=== PATIENT | female | born 1970 | race Caucasian/White ===

== ENCOUNTER → 2016-10-27 | Outpatient (CLI) | payer OTHER | LOC: FIMAGING 07:32 | PROVIDERS: ATTEND Physician Assistant Medical | DX: Z12.31 Encounter for screening mammogram for malignant neoplasm of breast (principal); Z85.3 Personal history of malignant neoplasm of breast | CPT/HCPCS: G0202-52 ==

== ENCOUNTER 2018-06-21 09:28 | Emergency (ER) | payer OTHER ==
--- NOTE | 2018-06-21 09:48 | EDPHY ---
General - History Smoking Status: Never smoked Time Seen by Provider: 06/21/18 09:47 Narrative: CLINICAL IMPRESSION: Lumbar back pain without radiculopathy ASSESSMENT/PLAN: Patient is a 47-year-old female with no significant medical history presents to the emergency department with right-sided lumbar back pain after bending over just prior to arrival. Patient is afebrile, not toxic appearing and in no acute distress. She has tenderness on her right lumbar region and right SI joint. HSNE intact with no significant red flags. Lumbar x-ray with no acute findings. UA with no evidence of infection, do not suspect UTI or pyelo. I suspect her pain is secondary to myofascial strain, she was given ibuprofen, Flexeril and a lidocaine patch was placed with improvement of her discomfort. She does not have a primary care provider, I discussed the importance of establishing care as she may benefit from PT and may ultimately need further imaging to include MRI. There were no findings today to suggest other etiologies to include epidural compression/hematoma, epidural abscess, fracture , subluxation, cauda equina or herpes zoster. Patient will call today to schedule follow-up and establish care, conservative return precautions discussed. DIFFERENTIAL DX: Back pain including but not limited to muscular pain, herniated disc, spine fracture, intra-abdominal causes and urinary tract infection. CHIEF COMPLAINT: Right Sided Back Pain HPI: Patient is a 47-year-old female with no significant medical history who presents to the emergency department with right-sided lumbar back pain. Patient reports last April she experienced a similar episode after she bent over, experiencing pain on and off however improved with increased exercise and core strengthening. Yesterday morning she bent over again and had a sudden onset in the same location of her lower right lumbar spine, the pain increased and around 630 she felt like she could not stand or sit secondary to the pain. At baseline the pain is very achy and dull, with movement it is very sharp. She denies any radiation of the pain down her leg. She denies any trauma or injury. She has had no fever, chest pain, shortness of breath or abdominal pain. She denies any urinary symptoms to include dysuria, hematuria or frequency. Bowel movements have been regular and normal. She took a narcotic that she had left over from an ankle surgery last evening and this morning around 1:00 a.m. With mild relief of her symptoms. She has never been evaluated for this, no imaging has been performed. Patient denies saddle paresthesias, lower extremity numbness, tingling, major motor weakness, urinary retention or bowel/bladder incontinence. PMH: Denies Family History: Not contributory Social History: Denies REVIEW OF SYSTEMS: All other systems negative Constitutional: No fever. Eyes: No discharge, vision change ENT: No sore throat, congestion, ear pain. Cardiovascular: No chest pain, no palpitations. Respiratory: No cough, no shortness of breath. Gastrointestinal: No abdominal pain, no vomiting, diarrhea. Genitourinary: No hematuria, dysuria, flank pain, pelvic pain. Musculoskeletal: Lumbar back pain. No myalgias. Skin: No rashes, color change. Neurological: No headache, dizziness, weakness. PHYSICAL EXAM: General Appearance: Alert, uncomfortable appearing however not toxic-appearing. HENT: Normocephalic, atraumatic. Bilateral external ears are normal. Bilateral tympanic membranes are normal with pearly skinner reflex. Nares are clear, mucosa is pink. Oropharynx is clear, uvula is midline. There is no tonsillar enlargement or exudate. Eyes: PERRLA, EOMI. Conjunctiva pink, no pallor or injection. Neck: Supple, nontender, no lymphadenopathy, no midline pain, FROM, no meningismus. Back: No step-off, palpable bony abnormality, edema, erythema or ecchymosis of the cervical, thoracic or lumbar spines. Mild tenderness to palpation midline lumbar spine and right SI joint. Limited range of motion of the lumbar spine secondary to pain. 5/5 and equal strength of the UEs and LEs bilaterally including shoulder shrug. Pulses: 2+ and equal radial, DP and PT pulses bilaterally. Sensation intact and symmetric to light touch from face, UEs and LEs bilaterally. Straight leg raise negative bilaterally. Low/medium concern for Acute Spinal Emergency (ASE) High Sensitivity Neuro Exam (HSNE) Lumbar pain L1: inner thigh sensation- no deficit L2: ADduct thigh (cross legs)- no deficit L3: Extend knee- no deficit L4: Ankle dorsiflexion- no deficit L5: Great toe extension- no deficit S1: Flex knee- no deficit S3-4: bladder/bowel function - no dysfunction HSNE no deficit --> check red flags Red flags: MINOR (1 pt each) Alcohol abuse: No DM : No Renal failure : No Night pain: No 3rd visit in <= 20 days: No MAJOR (3 pts each) IVDA : No Fever without focus: No Recent/current systemic infection: No Immunosuppression (physician discretion): No Recent spinal fracture/spinal procedure (ESR is not a good screen for spinal epidural hematoma): no New bladder/bowel incontinence or retention: Not Total Red Flag score 0 Total Red Flag score <= 3 AND neuro exam is at baseline ---> no MRI is recommended Respiratory: There are no retractions, lungs are clear to auscultation. Cardiac: Regular rate and rhythm, no murmurs or gallops. Gastrointestinal: Abdomen is soft, nontender, bowel sounds normal, no masses/ hernia, no rigidity, guarding or focal peritoneal findings. Neurological: Alert and oriented x 3, CN 2-12 grossly intact, normal gait no ataxia, DTR's intact, normal sensation and strength Skin: Warm, dry, no rashes. Musculoskeletal: Extremities are symmetrical, full range of motion, no tenderness, deformity, swelling, or erythema. Psychiatric: Patient is oriented X 3, there is no agitation. MEDICAL DECISION MAKING: Patient was seen independently. Secondary supervising physician at time of evaluation was Dr. Reynolds, he did not evaluate this patient.. Diagnosis: Lumbar back pain. New, requires workup Summary: Patient is a 47-year-old female with no significant medical history who presents with a complaint of low back pain after bending over yesterday. HSNE intact with no significant red flags. Lumbar spine xray today with no significant findings. Physical examination today is consistent with lumbar myofascial strain. She had no saddle paresthesias, lower extremity numbness, tingling, major motor weakness, urinary retention or bowel/bladder incontinence. No indication for emergent MRI. There were no clinical findings to suggest vertebral osteomyelitis, acute fracture, cauda equina syndrome, epidural abscess/hematoma, epidural compression syndrome, renal colic, AAA, dissection, pyelonephritis, meningitis, malignancy, transverse myelitis, herpes zoster, or additional emergent intraabdominal infectious/obstructive process. Patient was given single dose of ibuprofen, flexeril and a lidoderm patch was placed while in the ED with improvement of her pain. She does not have a primary care provider, I have given her a referral and discussed the importance of follow-up. On repeat examination and prior to discharge the patient was able to ambulate without difficulty, her neurological exam was grossly normal with no focal deficit. Clinical lab tests: Not applicable. Independent visualization of images, tracing, or specimens: Yes. Decision to obtain medical records or history from someone other than the patient: Yes Review / Summarize previous medical records: Yes Discussed patient with another provider: Yes, discussed with Dr. Reynolds Patient Progress: Stable, discharge. (Krista Crow) Medical Decision Making: I did not see this patient while she was in the emergency department. However her care was discussed with the PA while the patient was in the department. I agree with treatment plan and management (Richie Reynolds) - Diagnostics Imaging Results: Imaging Impressions Lumbar Spine X-Ray 06/21/18 10:11 Impression: 1. No compression fracture or pars defect. 2. No significant degenerative disk disease. - Objective Vital Signs: Initial Vital Signs Temperature (C) 37 C 06/21/18 09:31 Heart Rate 80 06/21/18 09:31 Respiratory Rate 18 06/21/18 09:31 Blood Pressure 106/83 H 06/21/18 09:31 O2 Sat (%) 97 06/21/18 09:31 O2 Delivery Mode Room Air Allergies/Adverse Reactions: No Allergies [NKA] Allergy (Verified 06/21/18 09:31) Home Medications: Medication Instructions Recorded Cyclobenzaprine [Cyclobenzaprine 5 mg PO Q8 PRN #10 tab 06/21/18 HCl] Laboratory Results: 06/21/18 10:36 Urine Color YELLOW Urine Appearance HAZY Urine pH 5.0 (5.0-7.5) Ur Specific Peterson 1.029 (1.002-1.030) Urine Protein NEGATIVE (NEGATIVE) Urine Ketones NEGATIVE (NEGATIVE) Urine Blood NEGATIVE (NEGATIVE) Urine Nitrate NEGATIVE (NEGATIVE) Urine Bilirubin NEGATIVE (NEGATIVE) Urine Urobilinogen 2.0 EU H EU (0.2-1.0) Ur Leukocyte Esterase NEGATIVE (NEGATIVE) Urine Glucose NEGATIVE (NEGATIVE) Medications Given: Discontinued Medications Cyclobenzaprine HCl (Flexeril) 10 mg PO EDNOW ONE Stop: 06/21/18 10:13 Last Admin: 06/21/18 10:29 Dose: 10 mg Ibuprofen (Motrin) 600 mg PO EDNOW ONE Stop: 06/21/18 10:13 Last Admin: 06/21/18 10:29 Dose: 600 mg Miscellaneous Medication (Icy Hot Lidocaine/Menthol 4%/1% Patch) 1 patch TD EDNOW ONE Stop: 06/21/18 10:13 Last Admin: 06/21/18 10:29 Dose: 1 patch Departure - Departure Disposition: Home, Routine, Self-Care Clinical Impression: Back pain Qualifiers: Back pain location: low back pain Chronicity: acute Back pain laterality: right Sciatica presence: without sciatica Qualified Code(s): M54.5 - Low back pain Condition: Good Instructions: Back Pain (ED) Additional Instructions: DISCHARGE INSTRUCTIONS FROM YOUR PROVIDER Thank you for visiting our emergency department today. Please keep in mind that discharge from the emergency department does not mean that there is nothing wrong - it simply means that we have not identified an emergency condition that requires further evaluation or treatment in the hospital. You should always plan to follow up with primary care for re-evaluation of your condition in the next 2-3 days. It is imperative that you establish care with a primary care provider, I have given you a referral. Most back pain improves quickly with rest and anti-inflammatory medicines. The majority of back pain will improve regardless of treatment within 4-6 weeks. Regardless, I recommend you follow up with primary care for recheck as soon as possible. Additional evaluation as an outpatient may be needed, and further therapeutic modalities such as chiropractic or PT may be helpful. You also may need additional imaging to include an MRI. Rest. Avoid lifting greater than 10-15 pounds. Avoid twisting or prolonged sitting. Movement and gentle walking is good for your back. Try to walk for 15-10 minutes on an even surface 3 or 4 times a day as tolerated and increase gentle exercise as your back improves. Apply ice to your low back during acute pain phase, later a heating pad set to a low setting or hot tub may be helpful to help relax muscles. Salonpas pain patch, you may purchase this [id number] at your local store. Follow instructions on the packaging. For pain control: You may take Tylenol, I recommend 500-1000 mg every 6-8 hours as needed. Take with food and a full glass of water. Stop taking if this is upsetting you stomach. Do not exceed 4000 mg in a 24 hr period. You may also take ibuprofen, recommend 400 mg every 6 hr. Take with food and a full glass of water. Stop taking if this upsets you stomach. Do not exceed 2400 mg in a 24 hr period. Flexeril as prescribed as needed for muscle tightness and/or spasm. Schedule a follow-up appointment with your primary care physician in the next 2- 3 days for re-evaluation. You may require further treatment, physical therapy and/or further future testing. Return for increased or unmanageable pain, new injury, new midline back pain, numbness, tingling, weakness of your legs, loss of bowel or bladder control, inability to urinate, burning or pain with urination, blood in the urine, fever , chills, abdominal pain, vomiting, difficulty walking, dizziness, fainting, chest pain, shortness of breath, neck pain, neck stiffness, other site of back pain, calf pain, leg redness or swelling, or for any other new, worsening or worrisome symptoms. People present with illnesses and injuries in different ways, and it is always possible that we have missed something. Again, thank you for choosing our emergency department. We hope that you feel better. Referrals: Aurora Tejada MD [Medical Doctor] - 1-2 days without fail Prescriptions: Cyclobenzaprine [Cyclobenzaprine HCl] 5 mg PO Q8 PRN #10 tab PRN Reason: Spasms
[2018-06-21] MEDS ORDERED: LIDOCAINE 4%/MENTHOL 1% PATCH TD ONE (10:12)
[2018-06-21] MEDS ORDERED: IBUPROFEN 600 MG TAB PO ONE (10:12)
[2018-06-21] MEDS ORDERED: CYCLOBENZAPRINE 10 MG TAB PO ONE (10:12)
[2018-06-21 12:03] VITALS: BP 120/80
[2018-06-21] MEDS ORDERED: PATCH REMOVAL 1 EA PATCH TD SCH (21:00)
== END 2018-06-21 12:03 | disposition home or self-care (01) ==
DX: M54.5 Low back pain (principal)

== ENCOUNTER → 2018-08-04 | Outpatient (CLI) | payer OTHER | LOC: FIMAGING 11:45 ==

== ENCOUNTER → 2018-08-09 | Outpatient (CLI) | payer OTHER | LOC: FIMAGING 13:36 ==

== ENCOUNTER → 2018-08-30 | Day surgery (SDC) | payer OTHER | LOC: FIMAGING 07:17 ==